=== PATIENT | female | born 1965 | race Caucasian/White ===

== ENCOUNTER 2016-04-30 11:19 | Outpatient (CLI) | payer OTHER ==
[2016-04-30 12:19] LABS: BASOPHILS % 0.7 (0.0-1.5); EOSINOPHILS % 1.3 % (0.0-6.8); LYMPHOCYTES # 3.5 # k/uL (0.6-4.0); MEAN CORPUSCULAR HEMOGLOBIN 31.3 pg (28.0-34.0); MONOCYTES # 0.4 # k/uL (0.0-0.9); MONOCYTES % 4.7 % (0.0-11.0); NEUTROPHILS # 3.3 # k/uL (1.4-7.7)
[2016-04-30 12:51] LABS: eGFR (African) > 60; eGFR (Non-African) > 60
--- NOTE | 2016-04-30 15:52 | OP Clinic Progress Note ---
REFERRING PHYSICIAN: Dr. Jaelyn Nesbitt Dear Dr. Nesbitt: REASON FOR VISIT: I had the pleasure of seeing Trisha Ortega in follow up for her rheumatoid arthritis. She is not doing well. When I last saw her in December, we stopped her methotrexate because of an elevated AST and ALT. One month ago, she ran out of her Humira and did not refill it. Since then, she has had worsening pain and stiffness and swelling of the hands, wrists, and feet, morning stiffness is over 60 minutes. On her last visit, she was complaining of severe back pain. We did do x-rays and those showed lumbar spondylosis, levoscoliosis, sacralization of L5 and some degenerative arthritis of the facet joints. PRESENT MEDICATIONS: 1. Prednisone 5 mg daily. 2. Plaquenil 200 mg twice a day. ALLERGIES: Penicillin. REVIEW OF SYSTEMS: She has had no fevers, chills, or sweats, no chest pain, shortness of breath, cough or wheezing. She still suffers from neurodermatitis. PHYSICAL EXAMINATION: GENERAL: On exam, she looks well. VITAL SIGNS: Weight: 284 pounds. Height: 5 feet 2 inches. T: 96, R: 12, heart rate 90, BP: 130/70. HEENT: Sclerae are anicteric. Conjunctivae are pink. No stomatitis or glossitis. LUNGS: Clear. HEART: Regular rhythm. ABDOMEN: Soft. VASCULAR: No edema or cyanosis. SKIN: Neurodermatitis with secondary injury due to scratching. 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 Elbows, shoulders, hips, knees, ankles, and feet are grossly unremarkable. LABORATORY: Her last labs from January 01, her sedimentation rate was 24, hemoglobin was 16.2, white count was 6.6. AST 42, ALT 55. Glucose was 129. IMPRESSION: 1. Rheumatoid arthritis. I have asked her to resume her Humira which she just let run out. I gave her a new prescription. 2. High risk drug. I am updating her TB status, checking her sedimentation rate, CBC, CMP, and CRP. I will see her back in 3 months. 3. Low back pain. Stable at this time. I would recommend exercise and physical therapy if possible. 4. Obesity. Again, I addressed the issue of needed weight loss. Thank you very much for the opportunity to care for your patient. Best regards, cc: Dr. Jaelyn Nesbitt Enclosure: Lab results MTDD
== END 2016-04-30 11:20 ==
LOC: RHEU 11:19
PROVIDERS: ATTEND Internal Medicine
DX: M05.79 Rheumatoid arthritis with rheumatoid factor of multiple sites without organ or systems involvement (principal); Z79.899 Other long term (current) drug therapy
CPT/HCPCS: 36415; 80053; 85025; 85651; 86140; 86431; 86480; 99213

== ENCOUNTER 2016-08-27 11:49 | Outpatient (CLI) | payer OTHER ==
--- NOTE | 2016-08-30 15:47 | OP Clinic Progress Note ---
REASON FOR VISIT: Trisha Ortega returns for follow up on her rheumatoid arthritis. She is doing quite well on Humira alone with no significant joint swelling, warmth, tenderness, morning stiffness or pain. Let us recall that she is rheumatoid factor and CCP positive at 413 and 127.2, respectively. Hepatitis B and C are negative. QuantiFERON TB Gold is negative. I had stopped her methotrexate in December for chronic elevations of AST and ALT. Her last AST and ALT have normalized. She also suffers from low back pain but has not been an issue on today's visit with no symptoms. PRESENT MEDICATIONS: 1. Humira. 2. Prednisone 5 mg daily. 3. Plaquenil 200 mg twice a day. ALLERGIES: Penicillin. REVIEW OF SYSTEMS: Review of systems, however, is positive for a rash. It is mainly on the face. It feels blistery and painful. It is worse with the heat. She is attributing the rash to the Humira and has not taken her Humira in 4 weeks. The rash has not improved or worsened. This is in a context with a diagnosis of neurodermatitis mainly of the arms. 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 Otherwise, she has no itching. In the rest of the systems reviewed, no fevers, chills, sweats, chest pain, shortness of breath, cough, wheezing, nausea, vomiting, or diarrhea. PHYSICAL EXAMINATION: GENERAL: She looks well. VITAL SIGNS: Height: 5 feet 2 inches. Weight: 236 pounds. T: 98.3, R: 12, heart rate: 115, BP: 140/90. HEENT: Sclerae are anicteric. Conjunctivae are pink. No stomatitis or glossitis. LUNGS: Clear bilaterally. HEART: Regular rhythm. ABDOMEN: Soft and nontender. VASCULAR: No edema or cyanosis. PERIPHERAL JOINTS: DIPs, PIPs, MCPs, wrists, elbows, shoulders, hips, knees, ankles, and feet show no synovitis or deformities. SKIN: The face is a little flushed but there is no definite lesions. She has no definite mal or rash. Changes of neurodermatitis of her arms remains unchanged. CHEST AND BACK: Examination of the anterior chest and upper back reveals little punctate lesions which suggest bug bites. She has a dog at home. Apparently, her apartment is regularly sprayed. IMPRESSION AND PLAN: 1. Rheumatoid arthritis, seropositive, multiple sites. Resume Humira. 2. Rash. We will refer her to Dermatology, but I do not think this is a drug reaction to Humira or a lupus-like reaction. If so, we will consider the use of Actemra. 3. Obesity, unchanged. 4. No other changes at this time. Thank you very much. cc: Dr. Jaelyn VIDES
== END 2016-08-27 13:46 ==
LOC: RHEU 11:49
PROVIDERS: ATTEND Internal Medicine
DX: M05.79 Rheumatoid arthritis with rheumatoid factor of multiple sites without organ or systems involvement (principal); Z79.899 Other long term (current) drug therapy
CPT/HCPCS: 99214

== ENCOUNTER 2017-02-25 13:35 | Outpatient (CLI) | payer OTHER ==
--- NOTE | 2017-02-28 15:17 | OP Clinic Progress Note ---
REASON FOR VISIT: Trisha Ortega returns for follow up on her rheumatoid arthritis, seropositive , of multiple sites. When I last saw her, she was doing well but had a rash. The Humira had been stopped but the rash persisted. 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 She remains on Plaquenil and the rash has improved. She presently has stopped her prednisone. PRESENT MEDICATIONS: Her medications, otherwise, have slightly changed. Flexeril was stopped. 1. She started on Zanaflex. 2. She also takes Klonopin as needed. 3. Gabapentin 100 mg 3 times a day. 4. Celebrex 200 mg daily. 5. Hydrocodone as needed. 6. Omeprazole. 7. Citalopram 20 mg daily. 8. Prazosin 2 mg at bedtime. 9. Abilify 5 mg taking 7.5 mg daily. 10. Duloxetine 60 mg daily. REVIEW OF SYSTEMS: She has had no fevers or chills. No chest pain, shortness of breath, cough, or wheezing. No nausea, vomiting, or diarrhea. PHYSICAL EXAMINATION: GENERAL: She looks well. VITAL SIGNS: Height: 5 feet 2 inches. Weight: 236 pounds. T: 97, R: 18, heart rate 80, BP: 150/80. HEENT: Conjunctivae are pink. Sclerae are anicteric. No rashes. No stomatitis. LUNGS: Clear. HEART: Regular rhythm. ABDOMEN: Soft. VASCULAR: No edema or cyanosis. PERIPHERAL JOINTS: Minimal tenderness at the PIPs, MCPs, and wrists. Elbows , shoulders, hips, knees, ankles, and feet are unremarkable. IMPRESSION: Rheumatoid arthritis, seropositive, of multiple sites. Doing well on just Plaquenil alone. Let us recall that she has failed Enbrel and presently may have a lupus-like rash from Humira. PLAN: She is going to continue Plaquenil. I will see her in 6 months. She is to call if her symptoms should worsen, i.e. joint swelling, worsening pain, or worsening morning stiffness. Thank you very much. cc: Dr. Jaelyn VIDES
== END 2017-02-25 13:45 ==
LOC: RHEU 13:35
PROVIDERS: ATTEND Internal Medicine
DX: M05.89 Other rheumatoid arthritis with rheumatoid factor of multiple sites (principal)
CPT/HCPCS: 99213